=== PATIENT | male | born 1980 | race Caucasian/White ===

== ENCOUNTER 2017-03-26 20:45 | Emergency (ER) | payer MEDICAID ==
[~2017-03-26] VITALS: Ht 195.6 cm; Wt 117.9 kg
[2017-03-26 20:58] VITALS: BP 165/71
[2017-03-26] MEDS ORDERED: HYDROmorphone HCL 2 MG/ML VL IV ONE (22:00)
[2017-03-26] MEDS ORDERED: ONDANSETRON HCL 4 MG/2 ML VIAL IV ONE (22:00)
[2017-03-27] MEDS ORDERED: HYDROmorphone HCL 2 MG/ML VL IV ONE
== END 2017-03-27 01:54 | disposition home or self-care (01) ==
LOC: EDBD 20:52 → ER 21:00
DX: S92.001A Unspecified fracture of right calcaneus, initial encounter for closed fracture (principal); X58.XXXA Exposure to other specified factors, initial encounter; Y93.72 Activity, wrestling; Y99.8 Other external cause status; Y92.89 Other specified places as the place of occurrence of the external cause
CPT/HCPCS: 29515; 73610; 73700; 96374; 96375; 96376; 99284; J1170; J2405

== ENCOUNTER 2017-04-20 21:11 | Emergency (ER) | payer MEDICAID ==
[~2017-04-20] VITALS: Ht 195.6 cm; Wt 122.5 kg
[2017-04-20 21:35] VITALS: BP 119/73
[2017-04-20 22:24] LABS: Basophils # (auto) 0.1 uL; Eosinophils # (auto) 0.1 uL; Eosinophils % (auto) 1.2 % (0.0-7.0); Hematocrit 40.7 % (41.0-53.0); Lymphocytes # (auto) 2.5 uL; Lymphocytes % (auto) 27.8 % (10.0-50.0); Mean Corpuscular Hemoglobin 31.9 pg (28.0-32.0); Mean Corpuscular Hgb Conc. 34.4 g/dL (32.0-36.0); Mean Corpuscular Volume 92.7 fL (80.0-100.0); Mean Platelet Volume 6.4 fL (6.9-10.8); Monocytes # (auto) 0.6 uL; Monocytes % (auto) 6.4 % (0.0-12.0); Neutrophils # (auto) 5.7 uL; Neutrophils % (auto) 63.6 % (37.0-80.0); Platelet Count (auto) 273 10^3/uL (140-450); Red Cell Distribution Width 12.3 % (11.8-14.3)
[2017-04-20 23:01] LABS: Bilirubin, Total 0.5 mg/dL (0.2-1.0); Calcium 8.9 mg/dL (8.5-10.1); Potassium 3.8 mmol/L (3.5-5.1); Total Protein 7.6 g/dL (6.4-8.2)
== END 2017-04-21 00:59 | disposition left against medical advice (07) ==
LOC: ER 21:11
DX: M79.672 Pain in left foot (principal); Z53.21 Procedure and treatment not carried out due to patient leaving prior to being seen by health care provider
CPT/HCPCS: 36415; 73700; 80053; 85025; 87040

== ENCOUNTER 2018-08-23 12:24 | Emergency (ER) | payer MEDICAID ==
[~2018-08-23] VITALS: Ht 195.6 cm; Wt 137.4 kg
[2018-08-23 13:28] VITALS: BP 135/76
[2018-08-23] MEDS ORDERED: LIDOCAINE 1% HCL (LOCAL ANESTH.) INJ 20ML MDV IJ ONE (13:45)
[2018-08-23] MEDS ORDERED: TETANUS-DIPTH-ACEL PERTUSSIS 0.5ML SYRG IM ONE (14:15)
== END 2018-08-23 15:42 | disposition home or self-care (01) ==
LOC: ER 12:30
DX: S61.012A Laceration without foreign body of left thumb without damage to nail, initial encounter (principal); X58.XXXA Exposure to other specified factors, initial encounter; Y93.89 Activity, other specified; Y99.8 Other external cause status; Y92.89 Other specified places as the place of occurrence of the external cause
CPT/HCPCS: 12001; 90471; 90715; 99283; J2001

== ENCOUNTER 2019-04-02 00:35 | Emergency (ER) | payer MEDICAID ==
[~2019-04-02] VITALS: Ht 198.1 cm; Wt 142.9 kg
[2019-04-02] MEDS ORDERED: SODIUM CHLORIDE 0.9% 2,000 ML IV ONE (01:30)
[2019-04-02 01:51] LABS: Basophils # (auto) 0.1 uL; Basophils % (auto) 0.9 % (0.0-2.0); Eosinophils # (auto) 0.3 uL; Eosinophils % (auto) 2.9 % (0.0-7.0); Hemoglobin 14.4 g/dL (13.5-17.5); Lymphocytes # (auto) 2.9 uL; Lymphocytes % (auto) 32.5 % (10.0-50.0); Mean Corpuscular Hemoglobin 32.2 pg (28.0-32.0); Mean Corpuscular Hgb Conc. 35.1 g/dL (32.0-36.0); Mean Corpuscular Volume 91.7 fL (80.0-100.0); Monocytes # (auto) 0.8 uL; Monocytes % (auto) 8.7 % (0.0-12.0); Nucleated Red Blood Cells % 0.1 %; Platelet Count (auto) 235 10^3/uL (140-450); Red Blood Cells 4.48 10^6/uL (4.5-5.90); Red Cell Distribution Width 12.7 % (11.8-14.3); White Blood Cell 9.1 10^3/uL (4.4-10.8)
[2019-04-02 02:12] LABS: Albumin 3.9 g/dL (3.4-5.0); BUN/Creatinine Ratio 12.5; Calcium 8.1 mg/dL (8.5-10.1); Potassium 3.6 mmol/L (3.5-5.1); Salicylate < 1.7 mg/dL (2.8-20.0)
[2019-04-02 02:15] LABS: Bilirubin, Total 0.6 mg/dL (0.2-1.0); Total Protein 7.7 g/dL (6.4-8.2)
[2019-04-02 02:21] LABS: Amphetamine Screen, Urine NEGATIVE (NEGATIVE); Barbiturate Scree,Urine NEGATIVE (NEGATIVE); Benzodiazephine Screen, Urine NEGATIVE (NEGATIVE); Cannabinoid Screen, Urine NEGATIVE (NEGATIVE); Cocaine Screen, Urine NEGATIVE (NEGATIVE); Opiate Scree,Urine NEGATIVE (NEGATIVE); Phencyclidine Screen, Urine NEGATIVE (NEGATIVE)
[2019-04-02] MEDS ORDERED: LORazepam 2MG/ML-1ML VIAL ONE (02:34)
[2019-04-02 02:42] LABS: Acetaminophen < 2.0 ug/mL (10-30)
[2019-04-02 03:58] LABS: Valproic Acid (Depakene) 18.9 ug/mL (50-100)
[2019-04-02 17:22] VITALS: BP 115/75
== END 2019-04-02 18:47 | disposition home or self-care (01) ==
LOC: ER 00:36
DX: T14.91XA Suicide attempt, initial encounter (principal); F31.9 Bipolar disorder, unspecified; G92 Toxic encephalopathy; F10.920 Alcohol use, unspecified with intoxication, uncomplicated; Y90.6 Blood alcohol level of 120-199 mg/100 ml; X83.8XXA Intentional self-harm by other specified means, initial encounter; Y93.89 Activity, other specified; Y99.8 Other external cause status; Y92.89 Other specified places as the place of occurrence of the external cause
CPT/HCPCS: 36415; 80053; 80164; 80307; 80320; 80329; 82140; 85025; 93005; 99284; J2060

== ENCOUNTER → 2019-05-30 | Day surgery (SDC) | payer MEDICAID ==
[2019-05-28 10:43] LABS: Basophils # (auto) 0.1 uL; Eosinophils # (auto) 0.1 uL; Eosinophils % (auto) 1.2 % (0.0-7.0); Hematocrit 42.9 % (41.0-53.0); Hemoglobin 14.5 g/dL (13.5-17.5); Lymphocytes # (auto) 1.8 uL; Mean Corpuscular Hemoglobin 31.9 pg (28.0-32.0); Mean Corpuscular Hgb Conc. 33.7 g/dL (32.0-36.0); Mean Corpuscular Volume 94.5 fL (80.0-100.0); Monocytes # (auto) 0.6 uL; Monocytes % (auto) 9.2 % (0.0-12.0); Neutrophils # (auto) 3.7 uL; Neutrophils % (auto) 59.6 % (37.0-80.0); Nucleated Red Blood Cells % 0.1 %; Platelet Count (auto) 183 10^3/uL (140-450); Red Blood Cells 4.54 10^6/uL (4.5-5.90); Red Cell Distribution Width 12.9 % (11.8-14.3); White Blood Cell 6.1 10^3/uL (4.4-10.8)
[2019-05-28 11:02] LABS: Urine Bacteria NONE SEEN /hpf (None Seen); Urine Blood Negative /uL (Negative); Urine Mucus FEW (None Seen); Urine Specific Gravity 1.024 (1.001-1.035); Urine WBC <1 /hpf (0 - 3)
[2019-05-28 11:11] LABS: INR 1.13 (0.9-1.15); Partial Thromboplastin Time 26.6 sec (23.64-32.05)
[2019-05-28 11:22] LABS: Albumin 3.8 g/dL (3.4-5.0); Calcium 8.3 mg/dL (8.5-10.1); Potassium 4.2 mmol/L (3.5-5.1)
[2019-05-28 11:27] LABS: BUN/Creatinine Ratio 16.9; Bilirubin, Total 0.5 mg/dL (0.2-1.0); Total Protein 7.7 g/dL (6.4-8.2)
[~2019-05-30] VITALS: Ht 195.6 cm; Wt 141.5 kg
[~2019-05-30] MED LIST: ARIP1TAB7 PO; DIVA250T51 PO; HYDROmorphone HCL 2 MG/ML VL IV PRN; KETAMINE HCL 10 ML ONE; KETOROLAC TROMETH 30 MG/ML 1ML VIAL IV ONE; LAM100T PO; LIDOCAINE W/ EPINEPHRINE 1% 20ML VIAL ONE; MIDAZOLAM HCL 1MG/1ML-2 ML VIAL ONE; MORPHINE SULFATE 4 MG/ML SYR/VIAL IV PRN; ONDANSETRON HCL 4 MG/2 ML VIAL IV PRN; ONDANSETRON HCL 4 MG/2 ML VIAL ONE; PROPOFOL 10 MG/ML 20 ML IV ONE; SODIUM CHLORIDE LOCK 10 ML ONE; ceFAZolin 1GM/50ML 50 ML IV ONE; fentaNYL CITRATE 100 MCG/2 ML VL IV PRN; fentaNYL CITRATE 100 MCG/2 ML VL ONE
[2019-05-30 12:52] VITALS: BP 122/78
== END | disposition home or self-care (01) ==
LOC: SUR 07:44
PROVIDERS: ATTEND Urology
DX: Z30.2 Encounter for sterilization (principal); F32.9 Major depressive disorder, single episode, unspecified; Z98.890 Other specified postprocedural states
CPT/HCPCS: 36415; 55250; 80053; 81001; 85025; 85610; 85730; 93005; J0690; J2250; J2405; J2704; J3010